=== PATIENT | male | born 1955 | race Caucasian/White ===

== ENCOUNTER 2022-08-07 19:04 | Emergency (ER) | payer MEDICARE, MEDICAID ==
[~2022-08-07] VITALS: Ht 172.7 cm; Wt 70.0 kg
[2022-08-07] MEDS ORDERED: IBUPROFEN 600MG TABLET PO NR (22:00)
[2022-08-08 03:30] VITALS: BP 178/98
== END 2022-08-07 22:01 | disposition home or self-care (01) ==
LOC: ER 19:04 → EDBD 19:04 → ER 22:01
DX: S70.01XA Contusion of right hip, initial encounter (principal); Z88.8 Allergy status to other drugs, medicaments and biological substances; W19.XXXA Unspecified fall, initial encounter; Y93.89 Activity, other specified; Y92.89 Other specified places as the place of occurrence of the external cause; Y99.8 Other external cause status
CPT/HCPCS: 72170; 73552; 99284

== ENCOUNTER 2022-08-12 17:57 | Emergency (ER) | payer MEDICARE, MEDICAID ==
[~2022-08-12] VITALS: Ht 170.2 cm; Wt 82.0 kg
[2022-08-12] MEDS ORDERED: KETOROLAC 30MG/ML VIAL IV STA (19:23)
[2022-08-12] MEDS ORDERED: SODIUM CHLORIDE 0.9% 1,000 ML IV ONE ×3 (19:30→22:00)
[2022-08-12 19:51] LABS: HEMATOCRIT. 34.9 % (42.0-52.0); HEMOGLOBIN. 12.1 g/dL (14.0-18.0); MEAN CORPUSCULAR HEMOGLOBIN 33.8 pg (28.0-32.0); MEAN CORPUSCULAR VOLUME 97.6 fL (80.0-94.0); MEAN PLATELET VOLUME 9.9 fl (7.4-10.4); PLATELET 134 x1000/uL (130-400); RED BLOOD CELL COUNT 3.58 mill/uL (4.7-6.1); RED CELL DISTRIBUTION WIDTH 14.9 % (11.6-14.6)
[2022-08-12 19:57] LABS: CHLORIDE 91 mEq/L (98-107)
[2022-08-12 20:04] LABS: ETHANOL BLOOD 40 mg/dL
[2022-08-12 20:16] LABS: PLATELET ESTIMATE NORMAL
[2022-08-12] MEDS ORDERED: ONDANSETRON HCL 4MG/2ML INJ IV STA (21:46)
[2022-08-12] MEDS ORDERED: MORPHINE SULFATE 4 MG/ML CPJ (NOT FOR IM USE) IV STA (21:46)
[2022-08-13 00:33] LABS: PARTIAL THROMBOPLASTIN TIME 29.8 sec (23.4-31.0); PROTHROMBIN TIME 10.9 sec (9.6-11.0)
[2022-08-13] MEDS ORDERED: IOHEXOL-300 100 ML BOTTLE ONE (03:07)
[2022-08-13] MEDS ORDERED: MORPHINE SULFATE 4 MG/ML CPJ (NOT FOR IM USE) IV ONE (12:45)
[2022-08-13] MEDS ORDERED: KETOROLAC 15MG/ML VIAL IV ONE (12:45)
[2022-08-13] MEDS ORDERED: ENOXAPARIN 120MG/0.8ML SYR SUBCUT ONE (14:45)
[2022-08-13] MEDS ORDERED: ENOXAPARIN 100MG/ML SYR SUBCUT NR (15:30)
[2022-08-13] MEDS ORDERED: MORPHINE SULFATE 4 MG/ML CPJ (NOT FOR IM USE) IV STA (20:00)
[2022-08-13] MEDS ORDERED: ONDANSETRON HCL 4MG/2ML INJ IV STA (20:00)
[2022-08-14] MEDS ORDERED: MORPHINE SULFATE 4 MG/ML CPJ (NOT FOR IM USE) IV NR (00:30)
[2022-08-14] MEDS ORDERED: HYDROMORPHONE HCL/PF 2MG/ML CPJ IV ONE (03:00)
[2022-08-14] MEDS ORDERED: HYDROMORPHONE HCL/PF 2MG/ML CPJ IV NR (03:15)
[2022-08-14 06:24] VITALS: BP 134/69
== END 2022-08-14 07:55 | disposition short-term general hospital (02) ==
LOC: ER 17:57
DX: S32.401A Unspecified fracture of right acetabulum, initial encounter for closed fracture (principal); S32.059A Unspecified fracture of fifth lumbar vertebra, initial encounter for closed fracture; W18.30XA Fall on same level, unspecified, initial encounter; Y93.89 Activity, other specified; Y92.89 Other specified places as the place of occurrence of the external cause; Y99.8 Other external cause status
CPT/HCPCS: 36415; 71045; 72131; 72192; 74177; 80053; 80320; 85025; 93005; 96361; 96372; 96374; 96375; 96376; 99285; J1170; J1650; J1885; J2270; J2405; J7030; Q9967; G0480

== ENCOUNTER 2022-11-14 19:01 | Inpatient (IN) | payer MEDICARE, MEDICAID ==
[~2022-11-14] VITALS: Ht 320 cm; Wt 70.3 kg
[2022-11-14 21:13] LABS: CHLORIDE 111 mEq/L (98-107); INDEX HEMOLYSI 4 (1-3); INDEX ICTERIC 1 (1-4); INDEX LIPEMIC 1 (1-3); SODIUM 142 mEq/L (136-145)
[2022-11-14 21:14] LABS: BASOPHILS % 0.4 % (0.0-2.0); DIFFERENTIAL COMMENT 0; EOSINOPHILS % 0.5 % (0.0-5.0); HEMATOCRIT. 45.9 % (42.0-52.0); HEMOGLOBIN. 14.2 g/dL (14.0-18.0); LYMPHOCYTES % 11.4 % (20.0-50.0); MEAN CORPUSCULAR HEMOGLOBIN 29.3 pg (28.0-32.0); MEAN CORPUSCULAR HGB CONC 30.9 g/dL (31.0-37.0); MEAN CORPUSCULAR VOLUME 94.9 fL (80.0-94.0); MEAN PLATELET VOLUME 10.2 fl (7.4-10.4); MONOCYTES % 4.9 % (2.0-8.0); NEUTROPHILS % 82.8 % (40.0-76.0); PLATELET 150 x1000/uL (130-400); POTASSIUM 4.4 mEq/L (3.5-5.1); RED BLOOD CELL COUNT 4.84 mill/uL (4.7-6.1); WHITE BLOOD COUNT 11.4 x1000/uL (4.5-11.0)
[2022-11-14 21:22] LABS: ALANINE AMINOTRANSFERASE 22 IU/L (13-61); ALBUMIN 3.9 g/dL (3.4-5.0); ASPARTATE AMINOTRANSFERASE 29 IU/L (15-37); BILIRUBIN TOTAL 0.6 mg/dL (0.1-1.0); CALCIUM 9.4 mg/dL (8.5-10.1); CARBON DIOXIDE 25 mEq/L (21-32); CREATININE 0.8 mg/dL (0.6-1.3); ETHANOL BLOOD < 10 mg/dL (-10); GLUCOSE 110 mg/dL (70-105); PROTEIN TOTAL 8.1 g/dL (6.0-8.3); TROPONIN I HIGH SENSITIVITY 6 ng/L (<78); UREA NITROGEN BLOOD 15 mg/dL (7-21)
[2022-11-14 22:13] LABS: INDEX HEMOLYSI 1 (1-3)
[2022-11-14 22:16] LABS: AMMONIA 28 uMol/L (<32)
[2022-11-14 23:42] LABS: BG BASE EXCESS 0.1 mmol/L (-2.0-2.0); BG CARBOXYHEMOGLOBIN 2.1 % (0.5-1.5); BG DEOXYHEMOGLOBIN 6.6 % (0.0-5.0); BG HCO3 ACT 24.6 mmol/L (22.0-26.0); BG METHEMOGLOBIN 0.3 % (0.0-1.5); BG OXYGEN SATURATION 93.2 % (92.0-98.5); BG PCO2 39.2 mmHg (35.0-45.0); BG PH 7.415 (7.350-7.450); BG PO2 66.6 mmHg (75.0-100.0); BG SAMPLE SITE RIGHT RADIAL; BG TOTAL HEMOGLOBIN 12.8 g/dL (12.0-18.0); BG VENT MODE ROOM AIR
[2022-11-15] MEDS ORDERED: CLONIDINE 0.1MG TABLET PO PRN (00:15)
[2022-11-15] MEDS ORDERED: ONDANSETRON HCL 4MG/2ML INJ IV PRN (00:15)
[2022-11-15] MEDS ORDERED: MAGNESIUM/ALUMINUM HYDROXIDE/SIMETHICONE 30ML UDC PO PRN (00:15)
[2022-11-15] MEDS ORDERED: DOCUSATE SODIUM 100MG CAPSULE PO PRN (00:15)
[2022-11-15] MEDS ORDERED: GUAIFENESIN 200MG/10ML SUGAR FREE UDC PO PRN (00:15)
[2022-11-15] MEDS ORDERED: IPRATROPIUM/ALBUTEROL 0.5-3(2.5)MG/3ML NEB HHN PRN (00:15)
[2022-11-15] MEDS ORDERED: DEXTROSE 50% WATER 50ML SYRINGE IV PRN (00:45)
[2022-11-15] MEDS ORDERED: DEXT 5%/0.45% NACL 500ML 1,000 ML IV SCH (02:00)
[2022-11-15] MEDS: BLOOD SUGAR DIAGNOSTIC STRIP TEST SCH ×4 (06:31→21:00)
[2022-11-15] MEDS: INSULIN LISPRO 100 UNITS/ML SUBCUT SCH ×3 (07:22→17:00)
[2022-11-15 07:38] LABS: BASOPHILS % 0.4 % (0.0-2.0); EOSINOPHILS % 0.7 % (0.0-5.0); HEMATOCRIT. 36.4 % (42.0-52.0); HEMOGLOBIN. 11.8 g/dL (14.0-18.0); LYMPHOCYTES % 13.8 % (20.0-50.0); MEAN CORPUSCULAR HEMOGLOBIN 29.7 pg (28.0-32.0); MEAN CORPUSCULAR HGB CONC 32.4 g/dL (31.0-37.0); MEAN CORPUSCULAR VOLUME 91.9 fL (80.0-94.0); MEAN PLATELET VOLUME 10.4 fl (7.4-10.4); MONOCYTES % 5.7 % (2.0-8.0); NEUTROPHILS % 79.4 % (40.0-76.0); PLATELET 136 x1000/uL (130-400); RED BLOOD CELL COUNT 3.96 mill/uL (4.7-6.1); RED CELL DISTRIBUTION WIDTH 20.4 % (11.6-14.6); WHITE BLOOD COUNT 11.7 x1000/uL (4.5-11.0)
[2022-11-15 07:54] LABS: CHLORIDE 110 mEq/L (98-107); INDEX HEMOLYSI 1 (1-3); INDEX ICTERIC 1 (1-4); INDEX LIPEMIC 1 (1-3); POTASSIUM 3.7 mEq/L (3.5-5.1); SODIUM 142 mEq/L (136-145)
[2022-11-15 08:02] LABS: PHOSPHORUS 2.8 mg/dL (2.5-4.9)
[2022-11-15 08:07] LABS: ALANINE AMINOTRANSFERASE 19 IU/L (13-61); ALBUMIN 3.1 g/dL (3.4-5.0); ASPARTATE AMINOTRANSFERASE 17 IU/L (15-37); BILIRUBIN TOTAL 0.8 mg/dL (0.1-1.0); CALCIUM 8.9 mg/dL (8.5-10.1); CARBON DIOXIDE 27 mEq/L (21-32); CHOLESTEROL 131 mg/dL (<200); CREATININE 0.7 mg/dL (0.6-1.3); GLUCOSE 116 mg/dL (70-105); HDL CHOLESTEROL 48 mg/dL (40-59); LDL CHOLESTEROL 76 mg/dL (5-100); PROTEIN TOTAL 6.7 g/dL (6.0-8.3); T4 FREE 0.99 ng/dL (0.76-1.46); THYROID STIMULATING HORMONE 0.38 uIU/mL (0.36-3.74); TRIGLYCERIDE 92 mg/dL (0-150); UREA NITROGEN BLOOD 13 mg/dL (7-21)
[2022-11-15] MEDS: ASPIRIN 81MG TABLET PO SCH (09:38)
[2022-11-15] MEDS: ENOXAPARIN 40MG/0.4ML SYR SUBCUT SCH (09:38)
[2022-11-15] MEDS: PANTOPRAZOLE SODIUM 40 MG/VIAL IV SCH (09:38)
[2022-11-15] MEDS ORDERED: AZITHROMYCIN 500MG/250ML 250 ML IV ONE (10:30)
[2022-11-15] MEDS ORDERED: LEVOFLOXACIN 500MG PREMIX 100 ML IV SCH (11:00)
[2022-11-15] MEDS: SODIUM CHLORIDE 0.9% 1,000 ML IV SCH (11:00)
[2022-11-15] MEDS ORDERED: AZITHROMYCIN 500MG/250ML 250 ML IV SCH (11:30)
[2022-11-15] MEDS ORDERED: HYDRALAZINE 20MG/ML VIAL IV PRN (11:30)
[2022-11-15] MEDS ORDERED: AZITHROMYCIN 500MG in DEXTROSE 5% WATER 250ML IV NR (11:30)
[2022-11-15] MEDS ORDERED: AMLODIPINE 10MG TABLET PO SCH (13:30)
[2022-11-15] MEDS ORDERED: METHYLPREDNISOLONE SOD SUCC 125MG VIAL IV NR (13:30)
[2022-11-15 14:10] LABS: HEMATOCRIT 35.8 % (42.0-52.0); HEMOGLOBIN 11.7 g/dL (14.0-18.0); MEAN CORPUSCULAR HEMOGLOBIN 29.9 pg (28.0-32.0); MEAN CORPUSCULAR HGB CONC 32.7 g/dL (31.0-37.0); MEAN CORPUSCULAR VOLUME 91.3 fL (80.0-94.0); PLATELET 141 x1000/uL (130-400); RED BLOOD CELL COUNT 3.92 mill/uL (4.7-6.1); RED CELL DISTRIBUTION WIDTH 20.2 % (11.6-14.6); WHITE BLOOD COUNT 9.6 x1000/uL (4.5-11.0)
[2022-11-15 14:20] LABS: D-DIMER 0.41 mg/L FEU (<0.50); INR 1.1; PROTHROMBIN TIME 11.3 sec (9.6-11.0)
[2022-11-15] MEDS ORDERED: AMLODIPINE 5MG TABLET PO SCH (14:50)
[2022-11-15 14:54] LABS: FERRITIN 173 ng/mL (22-322)
[2022-11-15 15:09] LABS: VITAMIN B12 SERUM 419 pg/mL (211-911)
[2022-11-15 15:17] LABS: CARBON DIOXIDE 28 mEq/L (21-32); CHLORIDE 110 mEq/L (98-107); CREATININE 0.7 mg/dL (0.6-1.3); GLUCOSE 102 mg/dL (70-105); POTASSIUM 3.8 mEq/L (3.5-5.1); SODIUM 142 mEq/L (136-145); UREA NITROGEN BLOOD 15 mg/dL (7-21)
[2022-11-15 15:18] LABS: ALANINE AMINOTRANSFERASE 17 IU/L (13-61); ALBUMIN 3.1 g/dL (3.4-5.0); ASPARTATE AMINOTRANSFERASE 12 IU/L (15-37); BILIRUBIN TOTAL 0.8 mg/dL (0.1-1.0); CALCIUM 9.1 mg/dL (8.5-10.1); INDEX HEMOLYSI 1 (1-3); INDEX ICTERIC 1 (1-4); INDEX LIPEMIC 1 (1-3); PROTEIN TOTAL 7.1 g/dL (6.0-8.3)
[2022-11-15 15:19] LABS: IRON 20 ug/dL (50-175); TOTAL IRON BINDING CAPACITY 288 ug/dL (250-450)
[2022-11-15 15:27] LABS: INDEX HEMOLYSI 1 (1-3)
[2022-11-15 15:35] LABS: CREATINE KINASE 54 IU/L (39-308); TROPONIN I HIGH SENSITIVITY 6 ng/L (<78)
[2022-11-15] MEDS ORDERED: CEFTRIAXONE 1GM PREMIX 50 ML IV SCH (16:00)
[2022-11-15] MEDS ORDERED: IOHEXOL-350 100 ML BOTTLE ONE (17:22)
[2022-11-15 21:00] VITALS: BP 134/52; PULSE 109; RESP 18; TEMP 97.2
[2022-11-16] VITALS (9 sets, daily range): BP systolic 112–128; BP diastolic 50–88; PULSE 59–96; RESP 16–20; TEMP 96–98.4; O2SAT 97–98
[2022-11-16] MEDS: SODIUM CHLORIDE 0.9% 1,000 ML IV SCH ×2 (01:38→13:12)
[2022-11-16] MEDS: IPRATROPIUM/ALBUTEROL 0.5-3(2.5)MG/3ML NEB HHN SCH ×4 (01:55→21:20)
[2022-11-16] MEDS: ATORVASTATIN CALCIUM 40MG TABLET PO SCH ×2 (04:49→20:50)
[2022-11-16] MEDS: ACETAMINOPHEN 650MG/20.3ML UDC GT PRN (04:52)
[2022-11-16] MEDS: BLOOD SUGAR DIAGNOSTIC STRIP TEST SCH ×2 (07:42→12:10)
[2022-11-16] MEDS: INSULIN LISPRO 100 UNITS/ML SUBCUT SCH ×2 (08:05→12:40)
[2022-11-16] MEDS: PANTOPRAZOLE SODIUM 40 MG/VIAL IV SCH (09:48)
[2022-11-16] MEDS: ASPIRIN 81MG TABLET PO SCH (09:48)
[2022-11-16] MEDS: ENOXAPARIN 40MG/0.4ML SYR SUBCUT SCH (09:48)
[2022-11-16] MEDS ORDERED: SODIUM CHLORIDE 10% FOR INH 15ML VIAL NEB INH NR (12:15)
[2022-11-16] MEDS ORDERED: PNEUMOCOCCAL 23-VAL P-SAC VAC 0.5 ML IM ONE (12:30)
[2022-11-16] MEDS: AZITHROMYCIN 500MG in DEXTROSE 5% WATER 250ML IV SCH (13:14)
[2022-11-16] MEDS: CEFTRIAXONE 1,000 MG in DEXTROSE 5% WATER 50 ML IV SCH (14:07)
[2022-11-16] MEDS ORDERED: AMLODIPINE 10MG TABLET PO SCH (14:15)
[2022-11-16 18:43] LABS: HEPATITIS B SURFACE ANTIGEN NEGATIVE
[2022-11-16 19:11] LABS: HEPATITIS B CORE AB IGM NEGATIVE
[2022-11-16 19:13] LABS: HEPATITIS A AB IGM NEGATIVE (NEGATIVE)
[2022-11-16 19:40] LABS: HEPATITIS C VIR.AB > 11.00 INDEXVAL (0.00-0.80)
[2022-11-17] VITALS (10 sets, daily range): BP systolic 114–150; BP diastolic 54–83; PULSE 60–101; RESP 16–20; TEMP 97.5–98.6; O2SAT 94
[2022-11-17] MEDS: IPRATROPIUM/ALBUTEROL 0.5-3(2.5)MG/3ML NEB HHN SCH ×4 (01:02→21:27)
[2022-11-17] MEDS: BLOOD SUGAR DIAGNOSTIC STRIP TEST SCH ×4 (07:10→21:00)
[2022-11-17] MEDS: INSULIN LISPRO 100 UNITS/ML SUBCUT SCH ×4 (07:40→21:00)
[2022-11-17] MEDS: ASPIRIN 81MG TABLET PO SCH (08:43)
[2022-11-17] MEDS: ENOXAPARIN 40MG/0.4ML SYR SUBCUT SCH (08:43)
[2022-11-17] MEDS: PANTOPRAZOLE SODIUM 40 MG/VIAL IV SCH (08:43)
[2022-11-17] MEDS: AMLODIPINE 10MG TABLET PO SCH (08:43)
[2022-11-17] MEDS: AZITHROMYCIN 500MG in DEXTROSE 5% WATER 250ML IV SCH (12:55)
[2022-11-17] MEDS: CEFTRIAXONE 1,000 MG in DEXTROSE 5% WATER 50 ML IV SCH (14:50)
[2022-11-17 15:10] LABS: CLARITY URINE CLEAR (CLEAR); COLOR URINE YELLOW (YELLOW); GLUCOSE URINE NEGATIVE (NEGATIVE); KETONES URINE NEGATIVE (NEGATIVE); LEUKOCYTE ESTERASE URINE NEGATIVE (NEGATIVE); NITRITE URINE NEGATIVE (NEGATIVE); OCCULT BLOOD URINE NEGATIVE (NEGATIVE); PH URINE 7.5 (4.5-8.0); PROTEIN URINE NEGATIVE (NEGATIVE); SPECIFIC GRAVITY URINE 1.009 (1.005-1.030)
[2022-11-17] MEDS ORDERED: SODIUM CHLORIDE 10% FOR INH 15ML VIAL NEB INH SCH (15:30)
[2022-11-17] MEDS: SODIUM CHLORIDE 0.9% 1,000 ML IV SCH ×2 (20:32→21:12)
[2022-11-17] MEDS: ATORVASTATIN CALCIUM 40MG TABLET PO SCH (21:12)
[2022-11-18] VITALS (9 sets, daily range): BP systolic 128–148; BP diastolic 48–76; PULSE 68–86; RESP 16–20; TEMP 97.8–98.6; O2SAT 95–96
[2022-11-18] MEDS: IPRATROPIUM/ALBUTEROL 0.5-3(2.5)MG/3ML NEB HHN SCH ×4 (02:30→19:58)
[2022-11-18] MEDS: INSULIN LISPRO 100 UNITS/ML SUBCUT SCH ×4 (07:03→21:00)
[2022-11-18] MEDS: BLOOD SUGAR DIAGNOSTIC STRIP TEST SCH ×4 (07:10→21:00)
[2022-11-18] MEDS: FAMOTIDINE 20MG/2ML VIAL IV SCH ×2 (08:59→23:20)
[2022-11-18] MEDS: AMLODIPINE 10MG TABLET PO SCH (08:59)
[2022-11-18] MEDS: ASPIRIN 81MG TABLET PO SCH (08:59)
[2022-11-18] MEDS: ENOXAPARIN 40MG/0.4ML SYR SUBCUT SCH (09:00)
[2022-11-18] MEDS: SODIUM CHLORIDE 0.9% 1,000 ML IV SCH (12:07)
[2022-11-18] MEDS: AZITHROMYCIN 500MG in DEXTROSE 5% WATER 250ML IV SCH (12:07)
[2022-11-18] MEDS: CEFTRIAXONE 1,000 MG in DEXTROSE 5% WATER 50 ML IV SCH (14:50)
[2022-11-18] MEDS: ATORVASTATIN CALCIUM 40MG TABLET PO SCH (23:20)
[2022-11-19] VITALS (8 sets, daily range): BP systolic 132–148; BP diastolic 46–82; PULSE 72–86; RESP 16–20; TEMP 97.1–98.8; O2SAT 97
[2022-11-19] MEDS: IPRATROPIUM/ALBUTEROL 0.5-3(2.5)MG/3ML NEB HHN SCH ×3 (02:00→21:11)
[2022-11-19] MEDS: SODIUM CHLORIDE 0.9% 1,000 ML IV SCH (02:17)
[2022-11-19] MEDS: BLOOD SUGAR DIAGNOSTIC STRIP TEST SCH (07:04)
[2022-11-19] MEDS: INSULIN LISPRO 100 UNITS/ML SUBCUT SCH (07:09)
[2022-11-19] MEDS: AMLODIPINE 10MG TABLET PO SCH (09:35)
[2022-11-19] MEDS: ASPIRIN 81MG TABLET PO SCH (09:35)
[2022-11-19] MEDS: FAMOTIDINE 20MG/2ML VIAL IV SCH ×2 (09:36→21:33)
[2022-11-19] MEDS: ENOXAPARIN 40MG/0.4ML SYR SUBCUT SCH (09:36)
[2022-11-19] MEDS: AZITHROMYCIN 500MG in DEXTROSE 5% WATER 250ML IV SCH (12:27)
[2022-11-19] MEDS: CEFTRIAXONE 1,000 MG in DEXTROSE 5% WATER 50 ML IV SCH (12:27)
[2022-11-19] MEDS: ATORVASTATIN CALCIUM 40MG TABLET PO SCH (21:34)
[2022-11-19] MEDS: ACETAMINOPHEN 650MG/20.3ML UDC GT PRN (21:34)
[2022-11-20] VITALS (10 sets, daily range): BP systolic 115–146; BP diastolic 62–82; PULSE 72–87; RESP 18–20; TEMP 97.6–99.1; O2SAT 99
[2022-11-20] MEDS: IPRATROPIUM/ALBUTEROL 0.5-3(2.5)MG/3ML NEB HHN SCH ×4 (01:48→21:02)
[2022-11-20] MEDS: ASPIRIN 81MG TABLET PO SCH (09:13)
[2022-11-20] MEDS: AMLODIPINE 10MG TABLET PO SCH (09:14)
[2022-11-20] MEDS: FAMOTIDINE 20MG/2ML VIAL IV SCH ×3 (09:14→20:41)
[2022-11-20] MEDS: ENOXAPARIN 40MG/0.4ML SYR SUBCUT SCH (09:14)
[2022-11-20] MEDS: OLANZAPINE 5MG TABLET PO SCH ×2 (13:25→21:00)
[2022-11-20] MEDS: CLONAZEPAM 1MG TABLET PO SCH ×2 (13:25→21:00)
[2022-11-20] MEDS ORDERED: OLAN10TA72 PO (14:03)
[2022-11-20] MEDS ORDERED: CLON1TAB12 PO (14:03)
[2022-11-20] MEDS ORDERED: OXYC5TAB3 PO (14:03)
[2022-11-20] MEDS ORDERED: FOLI-43 PO (14:03)
[2022-11-20] MEDS ORDERED: NICO-789 TP (14:03)
[2022-11-20] MEDS ORDERED: TAMS-11 PO (14:03)
[2022-11-20] MEDS ORDERED: DIVA500T51 PO (14:03)
[2022-11-20] MEDS ORDERED: GABA-532 PO (14:03)
[2022-11-20] MEDS ORDERED: TRAZ-251 PO (14:03)
[2022-11-20] MEDS ORDERED: DIVALPROEX SODIUM 250MG ER TABLET PO SCH (21:00)
[2022-11-20] MEDS: ATORVASTATIN CALCIUM 40MG TABLET PO SCH (21:00)
[2022-11-20] MEDS: DIVALPROEX SODIUM 500MG ER TABLET PO SCH (21:00)
[2022-11-21] VITALS: BP 111/60; PULSE 83; RESP 20; TEMP 97.6
[2022-11-21 04:00] VITALS: BP 142/61; PULSE 73; RESP 20; TEMP 97.9
[2022-11-21 08:00] VITALS: BP 129/75; PULSE 83; RESP 18; TEMP 98
[2022-11-21] MEDS: ASPIRIN 81MG TABLET PO SCH (08:40)
[2022-11-21] MEDS: DIVALPROEX SODIUM 500MG ER TABLET PO SCH (08:40)
[2022-11-21] MEDS: CLONAZEPAM 1MG TABLET PO SCH (08:40)
[2022-11-21] MEDS: OLANZAPINE 5MG TABLET PO SCH (08:43)
[2022-11-21] MEDS: ENOXAPARIN 40MG/0.4ML SYR SUBCUT SCH (08:43)
[2022-11-21] MEDS: AMLODIPINE 10MG TABLET PO SCH (08:43)
[2022-11-21] MEDS: FAMOTIDINE 20MG/2ML VIAL IV SCH (08:43)
[2022-11-21 12:00] VITALS: BP 135/70; PULSE 85; RESP 18; TEMP 97.5
[2022-11-21] MEDS ORDERED: AMLO10TA80 PO (15:13)
[2022-11-21 15:54] VITALS: BP 135/70; PULSE 85; TEMP 97.9; O2SAT 100
[2022-11-21 16:00] VITALS: BP 142/75; PULSE 96; RESP 19; TEMP 97.2
== END 2022-11-21 18:46 | disposition home or self-care (01) | DRG 189 ==
LOC: ER 20:02 → MICUSO 23:52 → 8WST 23:53
PROVIDERS: ADMIT Internal Medicine; ATTEND Internal Medicine
PROC: 5A09357 Assistance with Respiratory Ventilation, Less than 24 Consecutive Hours, Continuous Positive Airway Pressure (ICD-10-PCS; principal; 2022-11-18)
DX: J96.01 Acute respiratory failure with hypoxia (principal); G45.9 Transient cerebral ischemic attack, unspecified; G93.40 Encephalopathy, unspecified; E46 Unspecified protein-calorie malnutrition; R65.10 Systemic inflammatory response syndrome (SIRS) of non-infectious origin without acute organ dysfunction; Z68.1 Body mass index [BMI] 19.9 or less, adult; E78.5 Hyperlipidemia, unspecified; R91.1 Solitary pulmonary nodule; E11.9 Type 2 diabetes mellitus without complications; I10 Essential (primary) hypertension; F17.210 Nicotine dependence, cigarettes, uncomplicated; D72.829 Elevated white blood cell count, unspecified; Z88.8 Allergy status to other drugs, medicaments and biological substances; Z86.11 Personal history of tuberculosis
CPT/HCPCS: 36415; 36600; 70496; 71045; 71275; 76700; 80053; 80061; 80320; 81003; 82140; 82375; 82550; 82607; 82728; 82805; 82962; 83036; 83540; 83550; 83605; 83735; 83880; 84100; 84145; 84153; 84439; 84443; 84484; 85025; 85027; 85379; 86705; 86709; 86803; 87070; 87116; 87340; 92523; 92610; 93005; 93306; 93880; 93970; 94640; 94664; 97162; 97166; 99285; C9113; J0456; J0696; J1650; J1815; J1956; J2930; J3490; J7030; J7060; J7131; Q9967; A4315; G0103; G0480